=== PATIENT | female | born 1960 | race Asian ===

== ENCOUNTER → 2018-10-08 | Outpatient (CLI) | payer OTHER | END | disposition home or self-care (01) | LOC: CFH 06:41 | PROVIDERS: ATTEND Family Medicine | DX: M75.51 Bursitis of right shoulder (principal); M19.011 Primary osteoarthritis, right shoulder ==

== ENCOUNTER → 2020-08-24 | Outpatient (CLI) | payer OTHER ==
[~2020-08-24] MED LIST: SINCALIDE (KINEVAC) 5 MCG ONE
== END | disposition home or self-care (01) ==
LOC: RAD 10:20
PROVIDERS: ATTEND Family Medicine
DX: R14.0 Abdominal distension (gaseous) (principal); R19.7 Diarrhea, unspecified
CPT/HCPCS: 76700; 78227; A9537; J2805

== ENCOUNTER 2020-10-13 08:22 | Day surgery (SDC) | payer OTHER ==
[2020-10-10 11:27] LABS: BASOPHILS % (AUTO) 1 % (0-1); EOSINOPHILS % (AUTO) 2 % (1-7); LYMPHOCYTES % (AUTO) 41 % (22-44); MEAN CORPUSCULAR HEMOGLOBIN 31.2 pg (27.0-34.8); MEAN CORPUSCULAR HGB CONC 33.1 g/dL (32.4-35.8); MONOCYTES % (AUTO) 11 % (2-9); NEUTROPHILS % (AUTO) 45 % (42-75); PLATELET COUNT 237 x10^3/uL (130-400); RED BLOOD COUNT 4.43 x10^6/uL (3.82-5.3); RED CELL DISTRIBUTION WIDTH 13.6 % (9.6-15.2)
[2020-10-10 11:31] LABS: MD NO
[2020-10-10 11:37] LABS: ALBUMIN 3.9 g/dL (3.4-5.0); ANION GAP 4 mmol/L (5-15); CALCIUM 9.4 mg/dL (8.5-10.1); CHLORIDE 108 mmol/L (98-107)
[2020-10-10 11:40] LABS: ALANINE AMINOTRANSFERASE 34 U/L (12-78); ALKALINE PHOSPHATASE 100 U/L (45-117); BILIRUBIN,TOTAL 0.7 mg/dL (0.2-1.0); CREATININE 0.87 mg/dL (0.55-1.02); TOTAL PROTEIN 7.3 g/dL (6.4-8.2)
[~2020-10-13] VITALS: Ht 162.6 cm; Wt 72.0 kg
[~2020-10-13 08:22] MED LIST changes: +BLAC20TA PO; +BUPIVACAINE/PF 0.5% ONE; +CHOL10003 PO; +CYAN-27 PO; +EPINEPHRINE 1 MG/ML, 1ML ONE; +MULT-449 PO; -SINCALIDE (KINEVAC) 5 MCG ONE; +TERI14TA PO; +TRAZ150T62 PO; +UBID100C24 PO
[2020-10-13] MEDS ORDERED: CHLORHEXIDINE 15 ML UDC MM STA (08:36)
[2020-10-13] MEDS ORDERED: LACTATED RINGERS 1,000 ML IV SCH (09:00)
[2020-10-13] MEDS ORDERED: INDOCYANINE GREEN 25 MG VIAL IV ONE (09:16)
[2020-10-13] MEDS ORDERED: INDOCYANINE GREEN 25 MG VIAL IVPush STA (09:26)
[2020-10-13] MEDS ORDERED: MIDAZOLAM 1 MG/ML, 2ML ONE (10:25)
[2020-10-13] MEDS ORDERED: FENTANYL PF 250 MCG/5ML ONE (10:25)
[2020-10-13] MEDS ORDERED: DIPHENHYDRAMINE 50 MG/ML, 1ML IVPush PRN (10:30)
[2020-10-13] MEDS ORDERED: HALOPERIDOL 5 MG/ML IV PRN (10:30)
[2020-10-13] MEDS ORDERED: LABETALOL 5MG/ML, 20ML IV PRN (10:30)
[2020-10-13] MEDS ORDERED: hydrALAzine 20 MG/ML, 1ML IV PRN (10:30)
[2020-10-13] MEDS ORDERED: HYDROmorphone 1 MG/ML, 1ML INJ IVPush PRN (10:30)
[2020-10-13] MEDS ORDERED: MEPERIDINE/PF 25MG/0.5ML IVPush PRN (10:30)
[2020-10-13] MEDS ORDERED: PROMETHAZINE 25 MG/ML, 1ML IVPush PRN (10:30)
[2020-10-13] MEDS ORDERED: HYDROcodone/APAP 7.5-325MG/15ML UDC PO PRN (10:30)
[2020-10-13] MEDS ORDERED: FENTANYL PF 100 MCG/2ML IV PRN (10:30)
[2020-10-13] MEDS ORDERED: DEXAMETHASONE 4 MG/ML, 1ML ONE (11:44)
[2020-10-13] MEDS ORDERED: KETOROLAC 30 MG/1 ML ONE (12:14)
[2020-10-13] MEDS ORDERED: GLYCOPYRROLATE 0.2MG/1ML, 5ML ONE (12:32)
[2020-10-13] MEDS ORDERED: ONDANSETRON 2MG/ML, 2ML ONE (12:32)
[2020-10-13] MEDS ORDERED: PROPOFOL 10 MG/ML, 20ML ONE (12:32)
[2020-10-13] MEDS ORDERED: ROCURONIUM 10MG/ML,5ML ONE (12:32)
[2020-10-13] MEDS ORDERED: ESMOLOL 100 MG/10 ML ONE (12:32)
[2020-10-13] MEDS ORDERED: SUCCINYLCHOLINE 20 MG/ML, 10ML ONE (12:32)
[2020-10-13] MEDS ORDERED: CEFAZOLIN 1,000 MG ONE (12:32)
[2020-10-13] MEDS ORDERED: NEOSTIGMINE 1 MG/ML, 10ML ONE (12:32)
[2020-10-13] MEDS ORDERED: ACETAMINOPHEN 650 MG/20.3 ML UDC ONE (12:52)
[2020-10-13] MEDS ORDERED: OXYcodone 5 MG/5 ML ORAL.SOL UDC ONE (12:52)
[2020-10-13] MEDS ORDERED: FENTANYL PF 100 MCG/2ML ONE (12:52)
[2020-10-13] MEDS: OXYcodone 5 MG/5 ML ORAL.SOL UDC PO PRN ×2 (13:29→15:29)
[2020-10-13] MEDS ORDERED: OXYcodone IR 5MG TABLET ONE (15:29)
== END 2020-10-13 15:30 | disposition home or self-care (01) ==
LOC: OUT 08:22
PROVIDERS: ATTEND Surgery
DX: K83.8 Other specified diseases of biliary tract (principal); G47.00 Insomnia, unspecified; G35 Multiple sclerosis; F17.210 Nicotine dependence, cigarettes, uncomplicated; Z20.828 Contact with and (suspected) exposure to other viral communicable diseases; Z79.899 Other long term (current) drug therapy; Z72.89 Other problems related to lifestyle; Z98.890 Other specified postprocedural states; Z82.49 Family history of ischemic heart disease and other diseases of the circulatory system; Z83.3 Family history of diabetes mellitus
CPT/HCPCS: 36415; 47562; 80053; 85025; 88304; 93005; J0171; J0330; J0690; J1100; J1885; J2250; J2405; J2704; J2710; J3010; J7120; U0003